=== PATIENT | female | born 1995 | race Caucasian/White ===

== ENCOUNTER 2024-04-23 21:48 | Emergency (ER) | payer SELFPAY ==
[2024-04-23 22:23] LABS: APPEARANCE,URINE SLIGHTLY CLOUDY (CLEAR); COLOR,URINE ORANGE; OCCULT BLOOD,URINE UNABLE TO REPORT (NEGATIVE)
[2024-04-23 22:24] LABS: BILIRUBIN,URINE UNABLE TO REPORT (NEGATIVE); GLUCOSE,URINE UNABLE TO REPORT mg/dL (NEGATIVE); KETONES,URINE UNABLE TO REPORT mg/dL (NEGATIVE); LEUKOCYTE ESTERASE,URINE UNABLE TO REPORT (NEGATIVE); NITRITE,URINE UNABLE TO REPORT (NEGATIVE); PROTEIN,URINE UNABLE TO REPORT mg/dL (NEGATIVE); UROBILINOGEN,URINE UNABLE TO REPORT E.U./dL (0.2-1.0)
[2024-04-23 22:25] LABS: BACTERIA,URINE MODERATE /HPF; EPITHELIAL CELLS,URINE FEW /HPF; RBC,URINE 75-100 /HPF; SQUAMOUS EPITHELIAL CELLS,UR FEW /HPF; WBC CLUMPS,URINE FEW /HPF; WBC,URINE >100 /HPF
[2024-04-23] MEDS ORDERED: Nitrofurantoin Macrocrystal 50 MG Cap ONE (22:30)
[2024-04-23] MEDS: Nitrofurantoin Macrocrystal 50 MG Cap PO ONE (22:33)
[2024-04-26] MEDS: Nitrofurantoin Macrocrystal 50 MG Cap ONE (08:19)
== END 2024-04-23 22:43 | disposition home or self-care (01) ==
LOC: LB.ED 21:48
DX: N30.00 Acute cystitis without hematuria (principal); Z79.899 Other long term (current) drug therapy
CPT/HCPCS: 81001; 87086; 99284; A9270